=== PATIENT | male | born 1995 | race Caucasian/White ===

== ENCOUNTER 2019-05-06 20:24 | Emergency (ER) | payer OTHER ==
[~2019-05-06] VITALS: Ht 172.7 cm; Wt 72.1 kg
== END 2019-05-06 21:05 | disposition home or self-care (01) ==
LOC: ER 20:24
DX: S49.82XA Other specified injuries of left shoulder and upper arm, initial encounter (principal); M54.2 Cervicalgia; V49.88XA Car occupant (driver) (passenger) injured in other specified transport accidents, initial encounter; Y93.89 Activity, other specified; Y92.488 Other paved roadways as the place of occurrence of the external cause; Y99.8 Other external cause status

== ENCOUNTER 2020-02-04 10:59 | Outpatient (CLI) | payer OTHER | END 2020-02-04 11:30 | disposition home or self-care (01) | LOC: MRI 10:59 | PROVIDERS: ATTEND Obstetrics & Gynecology | DX: R60.9 Edema, unspecified (principal); M25.511 Pain in right shoulder; S49.91XA Unspecified injury of right shoulder and upper arm, initial encounter | CPT/HCPCS: 73221 ==

== ENCOUNTER 2020-12-01 10:50 | Inpatient (IN) | payer OTHER ==
[~2020-12-01] VITALS: Ht 172.7 cm; Wt 74.8 kg
[2020-12-02] MEDS ORDERED: AMOX1TAB5 PO (09:23)
== END 2020-12-02 13:17 | disposition home or self-care (01) | DRG 343 ==
LOC: ER 10:50 → SEC-K 16:10 → SURG 16:10
PROVIDERS: Surgery; ADMIT Internal Medicine; ATTEND Internal Medicine
PROC: 0DTJ4ZZ Resection of Appendix, Percutaneous Endoscopic Approach (ICD-10-PCS; principal; 2020-12-01 17:00)
DX: K35.30 Acute appendicitis with localized peritonitis, without perforation or gangrene (principal); Z20.822 Contact with and (suspected) exposure to COVID-19

== ENCOUNTER 2021-03-09 08:00 | Outpatient (CLI) | payer OTHER ==
[~2021-03-09 08:00] MED LIST: AMOX1TAB5 PO
== END 2021-03-09 08:30 | disposition home or self-care (01) ==
LOC: PPH VACUNA 08:00
PROVIDERS: ATTEND Emergency Medicine Pediatric Emergency Medicine
DX: Z23 Encounter for immunization (principal)